=== PATIENT | male | born 1960 | race Caucasian/White ===

== ENCOUNTER 2019-12-16 15:03 | Inpatient (IN) | payer OTHER ==
[2019-12-16 15:54] LABS: Basophils % (A) 0 %; Eosinophils # (A) 0.1 k/uL (0-0.7); Eosinophils % (A) 1 %; HCT 49.1 % (39.0-53.0); HGB 16.6 gm/dL (13.0-17.5); Lymphocytes # (A) 1.2 k/uL (1.0-4.8); Lymphocytes % (A) 15 %; MCHC 33.9 g/dL (31.0-37.0); MCV 97.2 fL (80.0-100.0); Mean Platelet Volume 7.3; Monocytes # (A) 0.4 k/uL (0-1.0); Monocytes % (A) 5 %; Neutrophils # (A) 6.3 k/uL (1.3-7.7); Neutrophils % (A) 78 %; Platelet Count 160 k/uL (150-450); RBC 5.05 m/uL (4.30-5.90); RDW 12.6 % (11.5-15.5); WBC 8.1 k/uL (3.8-10.6)
[2019-12-16 16:02] LABS: ALT 8 U/L (4-49); AST 25 U/L (17-59); African American GFR (CKD) >90 (>60 ml/min/1.73 sqM); Albumin 4.4 g/dL (3.5-5.0); Alcohol <10 mg/dL; Alkaline Phosphatase 83 U/L (38-126); Anion Gap 8 mmol/L; Blood Urea Nitrogen 7 mg/dL (9-20); Calcium 9.2 mg/dL (8.4-10.2); Carbon Dioxide 24 mmol/L (22-30); Chloride 103 mmol/L (98-107); Glucose 105 mg/dL (74-99); Non-African American GFR(CKD) >90 (>60 ml/min/1.73 sqM); Potassium 4.2 mmol/L (3.5-5.1); Sodium 135 mmol/L (137-145); Total Bilirubin 0.9 mg/dL (0.2-1.3); Total Protein 6.8 g/dL (6.3-8.2)
[2019-12-16 16:05] LABS: Partial Thromboplastin Time 23.9 sec (22.0-30.0); Prothrombin Time 10.6 sec (9.0-12.0)
--- NOTE | 2019-12-16 16:20 | ED ---
Dizziness HPI - General Chief Complaint: Dizziness Stated Complaint: lightheaded Time Seen by Provider: 12/16/19 15:05 Source: patient Limitations: no limitations - History of Present Illness Initial Comments: Patient is a 59-year-old male with past medical history of stroke who presents emergency Department with reported ataxia. Patient states he had a stroke 10 years ago. Had weakness which was chronic in his right side however again majority of this strength. He spent 4 years in a fpc and was just released last year. Reports that he's been doing well up until today. He woke up at 11:00 and noted that he felt a little bit weak on his left side and had difficulty keeping his balance. Normally ablates with a 4 post walker however states this was difficult for him. He denies any headaches or visual changes. No facial droop. Denies feeling confused. Reports that his symptoms have completely resolved upon arriving to the hospital. He has not taken any medications in a year. Patient reports to drinking 6 beers daily. Denies any fevers or chills. No chest pain or cough. No history of cardiac disease. No changes in his bowel or bladder habits. No other alleviating, Perceptin or mottling factors - Related Data Allergies Allergy/AdvReac Type Severity Reaction Status Date / Time No Known Allergies Allergy Verified 12/16/19 15:11 Review of Systems ROS Statement: Those systems with pertinent positive or pertinent negative responses have been documented in the HPI. ROS Other: All systems not noted in ROS Statement are negative. Past Medical History Past Medical History: CVA/TIA, Hypertension History of Any Multi-Drug Resistant Organisms: None Reported Past Surgical History: Tonsillectomy Past Psychological History: No Psychological Hx Reported Smoking Status: Current every day smoker Past Alcohol Use History: Daily Past Drug Use History: None Reported - Past Family History Mother Family Medical History: Cancer Father Family Medical History: Cancer General Exam Limitations: no limitations Course Vital Signs 12/16/19 12/16/19 15:05 15:45 Temperature 99.1 F Pulse Rate 55 L Pulse Rate [ 104 H Sitting Heating Engineer] Pulse Rate [ 107 H Standing Heating Engineer ] Pulse Rate [ 101 H Supine Heating Engineer] Respiratory 17 Rate Blood Pressure 168/100 Blood Pressure 170/92 [Right Arm Sitting] Blood Pressure 171/86 [Right Arm Standing] Blood Pressure 152/68 [Right Arm Supine] O2 Sat by Pulse 99 Oximetry EKG Findings - EKG Comments: EKG Findings:: EKG demonstrates sinus tachycardia with a ventricular rate of 106. Current 166. QRS 74. QTC of 441. Patient does have frequent PVCs in a bigeminy rhythm. No acute ST segment elevations or depressions Medical Decision Making - Medical Decision Making Upon arrival patient is placed into room 1. A thorough history and physical exam was performed. NIH stroke scale is performed. Patient does have some difficulties with finger to nose on the left side. Last known well was before the patient went to bed at 11 PM last night. Patient reports to feeling asymptomatic. Strength is equal. Peripheral IV was established. 12-lead EKG was performed which answers bigeminy rhythm. Lab results were conducted and the patient went for a CT of his brain as well as CT angiography. Laboratory studies are unremarkable. CT of the patient's brain demonstrates multiple old lacunar infarcts. CT angiography demonstrates mild atherosclerotic narrowing at the left greater than the right proximal ICAs. Less than 50% narrowing on the left than on the right there is less than 25%. No large vessel intracranial arterial occlusion. Chest x-ray demonstrates signs of COPD. I did discuss results with the patient. He is given a full dose aspirin. He did recommend hospitalization for evaluation by neurology and continued neuro checks per patient did agree to this. Discussed case with Dr. Lopez who accepted admission. She did see the patient in the emergency department. Patient was taken to the floor in stable condition - Lab Data Result diagrams: 12/16/19 15:39 12/16/19 15:39 Lab Results 12/16/19 12/16/19 12/16/19 Range/Units 15:39 15:39 15:39 WBC 8.1 (3.8-10.6) k/uL RBC 5.05 (4.30-5.90) m/uL Hgb 16.6 (13.0-17.5) gm/dL Hct 49.1 (39.0-53.0) % MCV 97.2 (80.0-100.0) fL MCH 33.0 (25.0-35.0) pg MCHC 33.9 (31.0-37.0) g/dL RDW 12.6 (11.5-15.5) % Plt Count 160 (150-450) k/uL Neutrophils % 78 % Lymphocytes % 15 % Monocytes % 5 % Eosinophils % 1 % Basophils % 0 % Neutrophils # 6.3 (1.3-7.7) k/uL Lymphocytes # 1.2 (1.0-4.8) k/uL Monocytes # 0.4 (0-1.0) k/uL Eosinophils # 0.1 (0-0.7) k/uL Basophils # 0.0 (0-0.2) k/uL PT 10.6 (9.0-12.0) sec INR 1.0 (<1.2) APTT 23.9 (22.0-30.0) sec Sodium 135 L (137-145) mmol/L Potassium 4.2 (3.5-5.1) mmol/L Chloride 103 (98-107) mmol/L Carbon Dioxide 24 (22-30) mmol/L Anion Gap 8 mmol/L BUN 7 L (9-20) mg/dL Creatinine 0.83 (0.66-1.25) mg/dL Est GFR (CKD-EPI)AfAm >90 (>60 ml/min/1.73 sqM) Est GFR (CKD-EPI)NonAf >90 (>60 ml/min/1.73 sqM) Glucose 105 H (74-99) mg/dL Plasma Lactic Acid Pedrito (0.7-2.0) mmol/L Calcium 9.2 (8.4-10.2) mg/dL Total Bilirubin 0.9 (0.2-1.3) mg/dL AST 25 (17-59) U/L ALT 8 (4-49) U/L Alkaline Phosphatase 83 (38-126) U/L Troponin I (0.000-0.034) ng/mL Total Protein 6.8 (6.3-8.2) g/dL Albumin 4.4 (3.5-5.0) g/dL Serum Alcohol <10 mg/dL 12/16/19 12/16/19 Range/Units 15:39 15:39 WBC (3.8-10.6) k/uL RBC (4.30-5.90) m/uL Hgb (13.0-17.5) gm/dL Hct (39.0-53.0) % MCV (80.0-100.0) fL MCH (25.0-35.0) pg MCHC (31.0-37.0) g/dL RDW (11.5-15.5) % Plt Count (150-450) k/uL Neutrophils % % Lymphocytes % % Monocytes % % Eosinophils % % Basophils % % Neutrophils # (1.3-7.7) k/uL Lymphocytes # (1.0-4.8) k/uL Monocytes # (0-1.0) k/uL Eosinophils # (0-0.7) k/uL Basophils # (0-0.2) k/uL PT (9.0-12.0) sec INR (<1.2) APTT (22.0-30.0) sec Sodium (137-145) mmol/L Potassium (3.5-5.1) mmol/L Chloride (98-107) mmol/L Carbon Dioxide (22-30) mmol/L Anion Gap mmol/L BUN (9-20) mg/dL Creatinine (0.66-1.25) mg/dL Est GFR (CKD-EPI)AfAm (>60 ml/min/1.73 sqM) Est GFR (CKD-EPI)NonAf (>60 ml/min/1.73 sqM) Glucose (74-99) mg/dL Plasma Lactic Acid Pedrito 1.1 (0.7-2.0) mmol/L Calcium (8.4-10.2) mg/dL Total Bilirubin (0.2-1.3) mg/dL AST (17-59) U/L ALT (4-49) U/L Alkaline Phosphatase (38-126) U/L Troponin I <0.012 (0.000-0.034) ng/mL Total Protein (6.3-8.2) g/dL Albumin (3.5-5.0) g/dL Serum Alcohol mg/dL Disposition Clinical Impression: Acute ataxia, History of CVA (cerebrovascular accident) Disposition: ADMITTED IP TO THIS HOSP Condition: Stable Is patient prescribed a controlled substance at d/c from ED?: No Decision to Admit Reason: Admit from EC Decision Date: 12/16/19 Decision Time: 16:43
--- NOTE | 2019-12-16 16:33 | CT ---
EXAMINATION TYPE: CT brain wo con DATE OF EXAM: 12/16/2019 COMPARISON: None HISTORY: 59-year-old male Dizziness, hx of stroke TECHNIQUE: Examination was done in axial plane without intravenous contrast. Coronal and sagittal r econstructions performed. CT DLP: 1102.8 mGycm Automated exposure control for dose reduction was used. FINDINGS: There is no evidence of acute intracranial hemorrhage, acute ischemic changes, mass, mass-effect, or extra-axial fluid collection. There is no effacement of cerebral sulci or basal subarachnoid cister ns. There is no hydrocephalus. There is no midline shift. Radford-white matter distinction is preserv ed. Leftward nasal septal deviation. Trace mucosal thickening ethmoid air cells. Mastoid air cells are pn eumatized. Old lacunar infarcts within the deep left white matter and left caudate head. IMPRESSION: A couple old left-sided lacunar infarcts. No acute intracranial abnormality seen.
--- NOTE | 2019-12-16 16:45 | XR ---
EXAMINATION TYPE: XR chest 2V DATE OF EXAM: 12/16/2019 COMPARISON: None HISTORY: 59-year-old male with dizziness TECHNIQUE: AP and lateral views FINDINGS: Heart normal size. Aorta and pulmonary vasculature are within normal limits. Suspect old fracture def ormity posterolateral upper right ribs. Mild diffuse interstitial prominence and mild hyperinflation. No consolidation or pleural effusion. DISH within the thoracic spine. IMPRESSION: Correlate for possible underlying COPD. No acute cardiopulmonary process.
--- NOTE | 2019-12-16 17:06 | CT ---
EXAMINATION TYPE: CT angio head neck DATE OF EXAM: 12/16/2019 COMPARISON: CT earlier today HISTORY: 59-year-old male with stroke suspected, acute neurologic deficit, Dizziness TECHNIQUE: Contiguous axial scanning of the sided neck performed with IV Contrast, patient injected w ith 65 mL of Isovue 370. Coronal/sagittal MIP reconstructions performed. CT DLP: 421 mGycm Automated exposure control for dose reduction was used. FINDINGS: NECK: Mild emphysematous change in the visualized upper lungs. Conventional vessel branching anatomy. The vertebral artery origins are patent and the vessels are patent throughout the course and codomina nt. The right common carotid artery is patent. Mild to moderate atherosclerotic change at the right bifurcation with a mild, 25% narrowing at the pr oximal right ICA. Measured internal carotid artery is patent. The left common carotid artery is patent. Moderate atherosclerotic changes at the left bifurcation. With mild, less than 50% narrowing at the l eft carotid bulb. Remainder of the left ICA is patent. HEAD: The vertebral arteries are patent. Mild atherosclerotic calcification within the right vertebral maritza ry. Early take off of the right PICA at the V3/V4 junction. The basilar artery is patent. Remainder of the posterior circulation is patent. Bilateral scattered calcifications within the cavernous segment right ICA. No significant narrowing. Anterior circulation is patent. No aneurysmal change is seen. IMPRESSION: 1. NECK: MILD ATHEROSCLEROTIC NARROWING AT THE LEFT GREATER THAN RIGHT PROXIMAL ICA's. ON THE LEFT, T HERE IS LESS THAN 50% NARROWING AND ON THE RIGHT, THERE IS LESS THAN 25% NARROWING. 2. HEAD: NO LARGE VESSEL INTRACRANIAL ARTERIAL OCCLUSION, SIGNIFICANT STENOSIS, OR ANEURYSMAL CHANGE IS SEEN.
[2019-12-16] MEDS ORDERED: ASPIRIN 325 MG TAB PO STA (17:18)
[2019-12-16] MEDS ORDERED: NALOXONE 0.4 MG/ML 1 ML VIAL IV PRN (18:16)
[2019-12-16] MEDS ORDERED: ACETAMINOPHEN TAB 325 MG TAB PO PRN (18:16)
[2019-12-16] MEDS ORDERED: LORazepam 2 MG/ML INJ IV PRN ×3 (18:19)
[2019-12-16] MEDS ORDERED: THIAMINE 100 MG/ML 2 ML VIAL IM STA (18:19)
--- NOTE | 2019-12-16 18:22 | P.HPIM ---
History of Present Illness H&P Date: 12/16/19 Chief Complaint: left sided weakness Patient is a 59-year-old male with a history of prior cerebrovascular accident with resultant right-sided hemiparesis requiring a 4 problem walker, chronic alcohol use, ad hypertension who presented with left sided weakness upon waking. He underwent an extensive evaluation in the ER. Initial vital signs show him to be hypertensive with a blood pressure 160/100. Orthostatic vitals were negative. Initial laboratory analysis was essentially unremarkable. Chest x- ray showed no acute process but probable underlying COPD. CT head showed old left-sided lacunar infarcts with no acute intracranial abnormality. EKG demonstrated bigeminy. There was concern for possible TIA as he had cerebral signs depsoite improvement in left sided weakness. Arrangements were made for admission. Patient seen and examined at bedside. Woke up today and felt unstable, left side wasn't working as well as it typically does and he felt a little light headed. Slept longer than normal last night. [place] very off balance when walking, was having to use the nunez and furniture for balance. Waited an hour still off balance and then again waited an hour and still of balance. Always has double vision when watching TV, but then says he sees fine , uses g lasses, No LAU No presyncope Chronic right sided hemiparesis, numbess on the right finger tip and foot X 10 years Was in residential for 4 years states he was there because he didn't have anywhere to go, states that it was due to alcohol. Drinks 6 beers nightly for the last 6 months. Review of Systems Pertinent positives and negatives as discussed in HPI, a complete review of systems was performed and all other systems are negative. Past Medical History Past Medical History: CVA/TIA, Hyperlipidemia, Hypertension History of Any Multi-Drug Resistant Organisms: None Reported Past Surgical History: Tonsillectomy Additional Past Surgical History / Comment(s): pneumthorax with chest tube Past Psychological History: No Psychological Hx Reported Smoking Status: Current every day smoker Past Alcohol Use History: Daily Past Drug Use History: None Reported Additional History: 1/4 PPD, six beers daily - Past Family History Mother Family Medical History: Cancer Father Family Medical History: Cancer Medications and Allergies Home Medications Medication Instructions Recorded Confirmed Type No Known Home Medications 09/07/20 09/07/20 History Allergies Allergy/AdvReac Type Severity Reaction Status Date / Time No Known Allergies Allergy Verified 12/16/19 18:06 Physical Exam Osteopathic Statement: *. No significant issues noted on an osteopathic structural exam other than those noted in the History and Physical/Consult. Vitals: Vital Signs Temp Pulse Pulse Pulse Pulse Resp BP 12/16/19 15:45 104 H 107 H 101 H 12/16/19 15:05 99.1 F 55 L 17 168/100 BP BP BP Pulse Ox 12/16/19 15:45 170/92 171/86 152/68 12/16/19 15:05 99 Intake and Output 12/16/19 12/16/19 12/16/19 06:59 14:59 22:59 Other: Weight 61.235 kg General: non toxic, no distress, appears at stated age Derm: warm, dry Head: atraumatic, normocephalic, symmetric Eyes: EOMI, no lid lag, anicteric sclera, pupils equal round reactive to light ENT: Nose and ears atraumatic, no thrush, no pharyngeal erythema Neck: No thyromegaly, no cervical lymphadenopathy, trachea midline, supple Mouth: no lip lesion, mucus membranes moist Cardiovascular: S1S2 reg, no murmur, positive posterior tibial pulse bilateral, no edema, capillary refill less than 2 seconds Lungs: clear to ascultation bilateral, no ronchi, no rales, no wheeze, no accessory muscle use Abdominal: soft, nontender to palpation, no guarding, no appreciable organomegaly, normal bowel sounds Ext: no gross muscle atrophy, muscle strength 5 out of 5 in bilateral upper extremities, 5 out of 5 in left lower extremity, 3-4 out of 5 in right lower extremity, no contractures Neuro: CN II-XI grossly intact, light touch intact all 4 extremities, finger to nose within normal limits, [id number] normal, no tremor Psych: Alert, oriented, appropriate affect, tangential thinking Results CBC & Chem 7: 12/16/19 15:39 12/16/19 15:39 Labs: Abnormal Lab Results - Last 24 Hours (Table) 12/16/19 Range/Units 15:39 Sodium 135 L (137-145) mmol/L BUN 7 L (9-20) mg/dL Glucose 105 H (74-99) mg/dL Thrombosis Risk Factor Assmnt - DVT/VTE Prophylaxis DVT/VTE Prophylaxis: Pharmacologic Prophylaxis ordered Assessment and Plan Assessment: Disequilibrium -Concern for possible posterior circulation stroke/TIA secondary to history of large stroke at age 49 -Neuro checks -Aspirin, statin -Consult nephrology -Echo -PT/OT/speech -Telemetry -All symptoms appeared to have resolved and this could be reflective of a TIA Hypertension, accelerated on arrival -Follow blood pressures -allow permissive hypertension with concerns for stroke -Possible need for blood pressure medication on discharge History of dyslipidemia -Not currently on medications -Check lipid profile -Start statin Alcohol abuse with impending withdrawal -[facility] protocol -Thiamine -Folic acid -Social work consultation Tobacco abuse -Cessation -Nicotine replacement The patient is placed in observation with an anticipated less than 2 midnight stay for evaluation of disequilibrium. Surrogate decision-maker: patient states that he has no one CODE STATUS: DNR DVT prophylaxis: Lovenox Discussed with: patient, nursing, ed physician Anticipated discharge date: 1-[address]: home A total of 65 minutes was spent on the care of this complex patient more than 50% of the time was spent in counseling and care coordination.
[2019-12-16 18:27] LABS: Appearance,Urine Clear (Clear); Bilirubin,Urine Negative (Negative); Blood,Urine Negative (Negative); Color,Urine Light Yellow; Glucose,Urine (UA) Negative (Negative); Ketones,Urine Negative (Negative); Leukocyte Esterase,Urine Negative (Negative); Nitrite,Urine Negative (Negative); Protein,Urine Negative (Negative); Specific Gravity,Urine 1.012 (1.001-1.035); Urobilinogen,Urine <2.0 mg/dL (<2.0)
[2019-12-16] MEDS: THIAMINE 100 MG TAB PO SCH (21:08)
[2019-12-16] MEDS: ATORVASTATIN 40 MG TAB PO SCH (21:08)
[2019-12-16] MEDS: NICOTINE 14MG/24HR PATCH TRANSDERM SCH (21:08)
[2019-12-17] MEDS: THIAMINE 100 MG TAB PO SCH ×2 (06:54→17:55)
[2019-12-17 07:43] LABS: Cholesterol 220 mg/dL (<200); Triglycerides 133 mg/dL (<150)
[2019-12-17 07:50] LABS: HDL Cholesterol 108 mg/dL (40-60); LDL Cholesterol,Calculated 85 mg/dL (0-99)
[2019-12-17] MEDS: MULTIVITAMINS, THERA 1 EACH TAB PO SCH (08:54)
[2019-12-17] MEDS: FOLIC ACID 1 MG TAB PO SCH (08:54)
[2019-12-17] MEDS: ENOXAPARIN 40 MG/0.4 ML SYRINGE SQ SCH (08:54)
[2019-12-17] MEDS: NICOTINE 14MG/24HR PATCH TRANSDERM SCH ×2 (08:54→08:58)
--- NOTE | 2019-12-17 11:01 | ECHOF ---
Referral Reason:stroke MEASUREMENTS -------- HEIGHT: 152.4 cm WEIGHT: 61.7 kg BP: IVSd: 1.1 cm (0.6 - 1.1) LVIDd: 3.5 cm (3.9 - 5.3) LVPWd: 1.2 cm (0.6 - 1.1) IVSs: 1.4 cm LVIDs: 3.1 cm LVPWs: 1.4 cm LA Diam: 3.5 cm (2.7 - 3.8) LAESV Index (A-L): 18.49 ml/m Ao Diam: 3.2 cm (2.0 - 3.7) AV Cusp: 1.7 cm (1.5 - 2.6) MV EXCURSION: 19.436 mm (> 18.000) MV EF SLOPE: 113 mm/s (70 - 150) EPSS: 1.0 cm MV E Kyle: 0.37 m/s MV DecT: 197 ms MV A Kyle: 0.60 m/s MV E/A Ratio: 0.61 RAP: 5.00 mmHg RVSP: 8.95 mmHg FINDINGS -------- Sinus rhythm. This was a technically good study. LV size, wall thickness and systolic function are normal, with an EF greater than 55%. The left robert tricular size is normal. The diastolic filling pattern is normal for the age of the patient 4.69. The right ventricle is normal in size. The left atrial size is normal. Normal LA size by volume 22+/-6 ml/m2. The right atrial size is normal. The aortic valve is trileaflet, and appears structurally normal. No aortic stenosis or regurgitation. Mild mitral regurgitation is present. Mild tricuspid regurgitation present. Right ventricular systolic pressure is normal at < 35 mmHg. There is no pulmonic regurgitation present. The aortic root size is normal. There is no pericardial effusion. CONCLUSIONS -------- 1. LV size, wall thickness and systolic function are normal, with an EF greater than 55%. 2. The left ventricular size is normal. 3. The diastolic filling pattern is normal for the age of the patient 4.69 4. The right ventricle is normal in size. 5. The left atrial size is normal. 6. Mild mitral regurgitation is present. 7. Mild tricuspid regurgitation present. 8. There is no pericardial effusion. SULFONATOR OPERATOR: Martha Infante RDCS
[2019-12-17] MEDS ORDERED: ASPIRIN 325 MG TAB PO SCH (12:00)
--- NOTE | 2019-12-17 13:31 | P.CNNES ---
History of Present Illness Consult date: 12/17/19 Requesting physician: Gabriela Álvarez Reason for Consult: ataxia History of Present Illness: This is a 59-year-old right-handed gentleman with medical history of stroke with right sided weakness about 10 years ago with residual right lower extremity weakness, alcohol use, tobacco use and hypertension who presented to the emergency department on 12/16/2019 for ataxia on left side. Patient woke up around 11:00 in the morning on 12/16/2019 and he felt weak over the left lower extremity and felt unsteady walking on left lower extremity. He had difficulty keeping his balance. Normally and he ambulates with a walker however he states, is walking seem different. Last normal was before he went to bed around 11 PM. He denied any numbness any visual disturbance any difficulty getting his words out as slurring her speech He denies of any dizziness, any weakness or ataxia over the left upper extremity. She denied of any headache. So the patient decided that the he's currently come to the emergency department since the left side is his strong side. For secondary stroke prophylaxis patient is not on any antiplatelet or Lipitor and he has not been on it for 6 months to a year since he was told by nursing facility that he does not need it. He reports drinking 6 beers daily and last drink was on Monday. Of note the patient stated that he had a stroke about 10 years ago which right upper and lower extremity was weak he went to [place] on [address] to him and he had some stroke workup and then he was discharged the in the hospital after a day or 2 and he had physical therapy at home. He had the residual right lower extremity weakness from the stroke otherwise the right upper extremity weakness resolved. He was using a wheel walker. 2016 the patient stated that he was homeless and he had no family so he went to a rehab facility but he said that he was in getting great rehab. Over at that facility and it was decided that he doesn't need the aspirin or Lipitor for secondary prophylaxis. As well as that he didn't need thiamine. He was discharged about the middle of 2018. She has also states that he smokes about 4-5 cigarettes a day and he's been smoking for years. Patient's workup in the hospital consisted of: Initial vitals consisted of blood pressure of 160/100, with a heart rate of 55, respiratory rate of 17 a temperature of 99.1 Fahrenheit orally and the pulse ox of [address] of the head which was reported as a couple old left-sided lacunar infarct. No acute intracranial abnormality seen. I personally reviewed the CT of the head and I felt the patient had some ex vacuo over the left occipital ventricle. I did appreciate that to lacunar infarct over the left hemisphere and a cemented to be subcortical in origin likely in the basal ganglia. There is a questionable minimal old lacunar over the right internal capsule but again it's questionable. CT angiography of the head and neck was done and the head was reported as no large vessel intracranial arterial occlusion, significant stenosis or aneurysm changes seen. In the neck was reported as mild atherosclerotic narrowing at the left greater than the right proximal ICA. On the left there is a less than 50% narrowing and on the right there is a less than 25% narrowing. EKG was reported as sinus tachycardia with frequent premature ventricular complex in that pattern of bigeminy. Possible left atrial enlargement. Septal infarct, age undetermined. Ventricular rate of 106. 2-D echo was reported as well that left ventricular size is normal. Ejection fraction of 55%. Left atrium size is normal. In the emergency department, the ED team noted on physical exam the patient had some difficulties with finger to nose on the left. Otherwise no weakness numbness. Patient did not get IV TPA since the patient was outside the window. Alcohol level <10. Review of Systems Review of system: The 12 point system was reviewed and apparent positive and negative per HPI. Past Medical History Past Medical History: CVA/TIA, Hyperlipidemia, Hypertension Additional Past Medical History / Comment(s): Right sided weakness initially paralyzed but able to gain strength back, uses walker History of Any Multi-Drug Resistant Organisms: None Reported Past Surgical History: Tonsillectomy Additional Past Surgical History / Comment(s): pneumthorax with chest tube Past Psychological History: No Psychological Hx Reported Smoking Status: Current every day smoker Past Alcohol Use History: Daily Past Drug Use History: None Reported - Past Family History Mother Family Medical History: Cancer Father Family Medical History: Cancer Medications and Allergies Home Medications Medication Instructions Recorded Confirmed Type No Known Home Medications 12/16/19 12/16/19 History Allergies Allergy/AdvReac Type Severity Reaction Status Date / Time No Known Allergies Allergy Verified 12/16/19 18:06 Physical Examination - Vital Signs Vital Signs: Vital Signs Temp Pulse Pulse Pulse Pulse Resp BP 12/17/19 11:56 98.6 F 77 20 12/17/19 08:00 98.5 F 73 20 12/17/19 04:00 98.0 F 48 L 16 12/17/19 00:00 98.1 F 75 17 12/16/19 20:00 98.2 F 72 16 12/16/19 18:44 98.3 F 76 16 12/16/19 18:02 99.3 F 93 17 139/96 12/16/19 15:45 104 H 107 H 101 H 12/16/19 15:05 99.1 F 55 L 17 168/100 BP BP BP Pulse Ox 12/17/19 11:56 138/80 98 12/17/19 08:00 132/85 96 12/17/19 04:00 143/69 99 12/17/19 00:00 149/78 97 12/16/19 20:00 153/65 97 12/16/19 18:44 129/90 100 12/16/19 18:02 98 12/16/19 15:45 170/92 171/86 152/68 12/16/19 15:05 99 Intake and Output 12/16/19 12/17/19 12/17/19 22:59 06:59 14:59 Intake Total 200 90 Output Total 175 Balance 200 -85 Intake: Oral 200 90 Output: Urine 175 Other: Voiding Method Urinal Urinal Weight 61.235 kg 62 kg GENERAL: The patient is lying in bed and is not in acute distress. CHEST: The heart rate is regular rate rhythm. No murmurs to auscultation. No carotid bruit bilaterally. LUNG: Clear to auscultation bilaterally no wheezing noted throughout. Not labored breathing. ABDOMEN/GI: Bowel sounds present in all 4 quadrants. No tenderness to palpation throughout. NEUROLOGICAL: Higher mental function: The patient is awake, alert, oriented to self, place and time. Patient is following commands. No aphasia and no neglect. Cranial nerves: The pupils are round, equal and reactive to light and accommodation. Visual saeed are full to confrontation throughout. Extraocular movement is intact no nystagmus is noted. Facial sensation is normal to touch throughout. The facial strength is normal throughout. Hearing is normal bilaterally to hand rub. Tongue is midline and moved [id number] without any difficulty. No dysarthria is noted. Shoulder shrug is normal bilaterally. Motor: Gait was assessed and patient was using a wheel chair and felt patient has circumduction of upon walking. Also I felt when walking his right foot was been slapped on the feet with every step. The strength: right distal lower extremity was 4+ and right hand ferry terminal agent was 5-. Otherwise 5/5 everywhere else is 5 over 5 throughout. There is decrease bulk in the right half area. Cerebellum: Ataxia noted over the left finger to nose and heel to aiken. Sensation: Sensation is normal to touch throughout. Reflexes (right/left): 3+ throughout right side and 2+ over the left side. Plantars is upgoing on the right and downgoing on the left.. Results Alcohol level is less than 10 Lipid profile: Triglyceride 133, cholesterol 220, LDL 85 and HDL 108. AST is 25 and ALTs of 8. Coagulation study: PT of 10.6, INR 1.0 and PTT of 23.9 - Laboratory Findings CBC and BMP: 12/16/19 15:39 12/16/19 15:39 Abnormal Lab Findings: Abnormal Labs 12/16/19 12/17/19 15:39 06:31 Sodium 135 L BUN 7 L Glucose 105 H Cholesterol 220 H HDL Cholesterol 108 H Assessment and Plan Assessment: Ataxia on the left side likely due stroke (he feels back to baseline but examination he continues to remain ataxia) History of multiple lacunar stroke over the left hemisphere with residual right lower extremity weakness (they seem subcortical and in the basal ganglia distribution) Hyponatremia possibly due to alcohol use. Hypertension Alcohol use Tobacco use Plan: CT of the head which was reported as a couple old left-sided lacunar infarct. No acute intracranial abnormality seen. I personally reviewed the CT of the head and I felt the patient had some ex vacuo over the left occipital ventricle. I did appreciate that to lacunar infarct over the left hemisphere and a cemented to be subcortical in origin likely in the basal ganglia. There is a questionable minimal old lacunar over the right internal capsule but again it's questionable. CT angiography of the head and neck was done and the head was reported as no large vessel intracranial arterial occlusion, significant stenosis or aneurysm changes seen. In the neck was reported as mild atherosclerotic narrowing at the left greater than the right proximal ICA. On the left there is a less than 50% narrowing and on the right there is a less than 25% narrowing. I ordered MRI of the brain to rule out any active stroke seen on imaging since the patient still has ataxia on the left side. 2-D echo was reported as well that left ventricular size is normal. Ejection fraction of 55%. Left atrium size is normal. Lipid profile: Triglyceride 133, cholesterol 220, LDL 85 and HDL 108. With LDL goal <70. Patient has not been on any antiplatelets or Lipitor for at least 1 year (he was told by rehab facility that he does not need it. PLACED the patient on double antiplatelets aspirin 81 and Plavix 75 and then discontinue Plavix after 21 days and to be permanently on aspirin 81 mg. Continue Lipitor 40 mg. PT OT and MANAGER RETAIL are consulted. I ordered TSH and hemoglobin A1c. Continue cardiac monitoring. I also ordered vitamin B12 especially with a history of significant alcohol use and the new episode of ataxia Patient is currently on thiamine 100 mg twice a day as well as folic acid 1mg daily. Patient was counseled on tobacco cessation as well as alcohol use. Because of the patient's significant history of alcohol use he is on CIWA protocol. Patient wants to be discharged home by latest tomorrow. Upon discharge the patient needs to follow up with a neurologist regarding the history of strokes as well as the this episode of ataxia which seems like an acute stroke as well. Thank you for the consult. Update: MRI Brain was done and showed acute right thalamic ischemic stroke. Also shows some periventricular white matter change in the posterior left hernandez radiata. Chronic white matter ischemic change to be considered. I personally reviewed the images and felt it was subacute (since hyperintensity on DWI, ADC and FLAIR). I recommend patient to be observed till tomorrow then will discharge him Jose Franklin M.D. Neuro-hospitalist Time with Patient: Greater than 30
--- NOTE | 2019-12-17 14:23 | MR ---
EXAMINATION TYPE: MR brain wo con DATE OF EXAM: 12/17/2019 COMPARISON: CT brain 12/16/2019 HISTORY: stroke: ataxia CONTRAST: Performed utilizing 0 mL intravenous Gadavist gadolinium contrast. TECHNIQUE: Multiplanar, multiecho imaging on a 3.0 Amita magnet is performed through the brain. Stud y is performed within 24 hours of arrival to the hospital. The craniovertebral junction is normal. The pituitary is normal. Diffusion-weighted imaging is performed. There is a punctate hyperintensity within the right thalamu s compatible with a tiny lacunar infarct. Some additional hyperintensities within the slightly more s uperior right thalamus in the periventricular white matter. Findings are compatible with acute ischem ic change. There is some periventricular white matter change in the posterior left hernandez radiata. Chronic white matter ischemic change be considered. Ventricles and sulci are appropriate for the patient age. IMPRESSIONS: 1. Acute lacunar infarct right thalamus and periventricular white matter.
--- NOTE | 2019-12-17 16:36 | P.PN ---
Subjective Progress Note Date: 12/17/19 Principal diagnosis: CVA Patient was seen and examined. No acute events overnight. Patient reports complete resolution sided weakness. States it is back to baseline. Would like to hold. He denies any chest pain, shortness of breath, or palpitations. No nausea or vomiting. No fever or chills. Objective - Vital Signs Vital signs: Vital Signs Temp 98.6 F 12/17/19 11:56 Pulse 77 12/17/19 11:56 Resp 20 12/17/19 11:56 BP 138/80 12/17/19 11:56 Pulse Ox 98 12/17/19 11:56 Intake & Output 12/16/19 12/17/19 12/17/19 18:59 06:59 18:59 Intake Total 200 190 Output Total 175 Balance 200 15 Weight 61.235 kg 62 kg Intake: Oral 200 190 Output: Urine 175 Other: Voiding Method Urinal Urinal - Exam General: [non toxic], [no distress], [appears at stated age] Derm: [warm], [dry] Head: [atraumatic], [normocephalic], [symmetric] Eyes: [EOMI], [no lid lag], [anicteric sclera] Mouth: [no lip lesion], [mucus membranes moist] Cardiovascular: [S1S2 reg], [no murmur], [positive posterior tibial pulse bilateral], Lungs: [CTA bilateral], [no rhonchi, no rales] , [no accessory muscle use] Abdominal: [soft], [ nontender to palpation], [no guarding], [no appreciable organomegaly] Ext: [no gross muscle atrophy], [no edema], [no contractures] Neuro: [ CN II-XI grossly intact], [3 out of 5 strength right upper and lower extremity, 5 out of 5 strength throughout otherwise] Psych: [Alert], [oriented], [appropriate affect] - Labs CBC & Chem 7: 12/16/19 15:39 12/16/19 15:39 Labs: Abnormal Lab Results - Last 24 Hours (Table) 12/17/19 Range/Units 06:31 Cholesterol 220 H (<200) mg/dL HDL Cholesterol 108 H (40-60) mg/dL Assessment and Plan Assessment: Lacunar CVA -Neuro checks -Aspirin, statin -Started on Plavix by neurology -MRI brain shows right-sided lacunar infarct -Discussed with Dr. Franklin, recommends observation overnight -Echo shows EF 55% -PT/OT/speech -Telemetry Hypertension, accelerated on arrival -Follow blood pressures -allow permissive hypertension with concerns for stroke -Possible need for blood pressure medication on discharge History of dyslipidemia -Not currently on medications -Lipid panel shows total cholesterol 220, HDL of 108 -Start statin Alcohol abuse with impending withdrawal -[facility] protocol -Thiamine -Folic acid -Social work consultation Tobacco abuse -Cessation -Nicotine replacement [Patient admitted for CVA. Neurology on board. Symptoms of resolved. Discussed with neurology, continue monitoring overnight. Anticipate DC home tomorrow.]
[2019-12-17] MEDS: CLOPIDOGREL 75 MG TAB PO SCH (17:55)
[2019-12-17 20:07] LABS: Hemoglobin A1C 5.6 % (4.0-6.0)
[2019-12-17] MEDS: ATORVASTATIN 40 MG TAB PO SCH (20:54)
[2019-12-18] MEDS: THIAMINE 100 MG TAB PO SCH (06:47)
[2019-12-18] MEDS ORDERED: ASPIRIN 81 MG PO SCH (09:00)
[2019-12-18] MEDS: ENOXAPARIN 40 MG/0.4 ML SYRINGE SQ SCH (09:35)
[2019-12-18] MEDS: FOLIC ACID 1 MG TAB PO SCH (09:35)
[2019-12-18] MEDS: NICOTINE 14MG/24HR PATCH TRANSDERM SCH (09:35)
[2019-12-18] MEDS: MULTIVITAMINS, THERA 1 EACH TAB PO SCH (09:35)
[2019-12-18] MEDS: CLOPIDOGREL 75 MG TAB PO SCH (09:35)
[2019-12-18 10:39] VITALS: BMI 18.2
[2019-12-18 11:09] VITALS: BP 128/77; PULSE 89; RESP 16; TEMP 98.4
--- NOTE | 2019-12-18 12:47 | P.PN ---
Subjective Progress Note Date: 12/18/19 Patient was seen at the bedside and he said he is doing much better today compared to yesterday. He feels like he is back to baseline. He denies any further weakness, numbness, visual disturbance or difficulty getting his words out Objective - Vital Signs Vital signs: Vital Signs Temp 98.4 F 12/18/19 08:00 Pulse 89 12/18/19 08:00 Resp 16 12/18/19 08:00 BP 128/77 12/18/19 08:00 Pulse Ox 96 12/18/19 08:00 Intake & Output 12/17/19 12/18/19 12/18/19 18:59 06:59 18:59 Intake Total 490 Output Total 175 250 Balance 315 -250 Weight 57.6 kg 57.6 kg Intake: Oral 490 Output: Urine 175 250 Other: Voiding Method Toilet Toilet Toilet Urinal Urinal Urinal # Voids 3 0 - Exam GENERAL: The patient is lying in bed and is not in acute distress. CHEST: The heart rate is regular rate rhythm. No murmurs to auscultation. LUNG: Clear to auscultation bilaterally no wheezing noted throughout. Not labored breathing. ABDOMEN/GI: Bowel sounds present in all 4 quadrants. No tenderness to palpation throughout. NEUROLOGICAL: Higher mental function: The patient is awake, alert, oriented to self, place and time. Patient is following commands. No aphasia and no neglect. Cranial nerves: The pupils are round, equal and reactive to light and accommodation. Visual saeed are full to confrontation throughout. Extraocular movement is intact no nystagmus is noted. Facial sensation is normal to touch throughout. The facial strength is normal throughout. Hearing is normal bilaterally to hand rub. Tongue is midline and moved [id number] without any difficulty. No dysarthria is noted. Shoulder shrug is normal bilaterally. Motor: Gait was assessed and patient was using a wheel chair and felt patient has circumduction of upon walking. Also I felt when walking his right foot was been slapped on the feet with every step. The strength: right distal lower extremity was 4+ and right hand patient financial services specialist was 5-. Otherwise 5/5 everywhere else is 5 over 5 throughout. There is decrease bulk in the right half area. Cerebellum: Mild Ataxia noted over the left finger to nose and heel to aiken. Sensation: Sensation is normal to touch throughout. Reflexes (right/left): 3+ throughout right side and 2+ over the left side. Plantars is upgoing on the right and downgoing on the left.. - Labs CBC & Chem 7: 12/16/19 15:39 12/16/19 15:39 Assessment and Plan Assessment: Subacute right thalamic stroke (likely small vessel disease (from stroke risk factors HTN, tobacco use and non-commpliant with secondary stroke prophylaxis from prior stroke) History of multiple lacunar stroke over the left hemisphere with residual right lower extremity weakness (they seem subcortical and in the basal ganglia distribution) Hyponatremia possibly due to alcohol use. Hypertension Alcohol use Tobacco use Plan: CT of the head which was reported as a couple old left-sided lacunar infarct. No acute intracranial abnormality seen. I personally reviewed the CT of the head and I felt the patient had some ex vacuo over the left occipital ventricle. I did appreciate that to lacunar infarct over the left hemisphere and a cemented to be subcortical in origin likely in the basal ganglia. There is a questionable minimal old lacunar over the right internal capsule but again it's questionable. CT angiography of the head and neck was done and the head was reported as no large vessel intracranial arterial occlusion, significant stenosis or aneurysm changes seen. In the neck was reported as mild atherosclerotic narrowing at the left greater than the right proximal ICA. On the left there is a less than 50% narrowing and on the right there is a less than 25% narrowing. MRI Brain was done and showed acute right thalamic ischemic stroke. Also shows some periventricular white matter change in the posterior left hernandez radiata. Chronic white matter ischemic change to be considered. I personally reviewed the images and felt it was subacute (since hyperintensity on DWI, ADC and FLAIR). 2-D echo was reported as well that left ventricular size is normal. Ejection fraction of 55%. Left atrium size is normal. Lipid profile: Triglyceride 133, cholesterol 220, LDL 85 and HDL 108. With LDL goal <70. Patient has not been on any antiplatelets or Lipitor for at least 1 year (he was told by rehab facility that he does not need it. PLACED the patient on dual antiplatelets, aspirin 81 and Plavix 75 and then discontinue Plavix after 21 days and to be permanently on aspirin 81 mg. Continue Lipitor 40 mg. PT OT and HEAD OF BUSINESS DEVELOPMENT are consulted. TSH: 3.60. Hemoglobin A1c: 5.6 vitamin B12: 497 (has significant history of alcohol use). Patient is currently on thiamine 100 mg twice a day as well as folic acid 1mg daily. Patient was counseled on tobacco cessation as well as alcohol use. Upon discharge the patient needs to follow up with a neurologist regarding the history of strokes as well as the this episode of ataxia which seems like an acute stroke as well. No further neurological work-up is needed. Jose Franklin M.D. Neuro-hospitalist Time with Patient: Greater than 30
--- NOTE | 2019-12-18 17:27 | P.DS ---
Providers Date of admission: 12/16/19 17:15 Expected date of discharge: 12/18/19 Attending physician: Amelia Triplett DO Consults: 12/16/19 17:17 Consult Physician Urgent Consulting Provider: Jose Franklin Consult Reason/Comments: acute ataxia, suspected tia, hx cva Do you want consulting provider notified?: Yes Primary care physician: Stated None Hospital Course: Patient is a 59-year-old male with a history of prior cerebrovascular accident with resultant right-sided hemiparesis requiring a 4 problem walker, chronic alcohol use, ad hypertension who presented with left sided weakness upon waking. He underwent an extensive evaluation in the ER. Initial vital signs show him to be hypertensive with a blood pressure 160/100. Orthostatic vitals were negative. Initial laboratory analysis was essentially unremarkable. Chest x- ray showed no acute process but probable underlying COPD. CT head showed old left-sided lacunar infarcts with no acute intracranial abnormality. EKG demonstrated bigeminy. There was concern for possible TIA as he had cerebral signs despite improvement in left sided weakness. Arrangements were made for admission. Patient was restarted on aspirin and statin. Neurology was consulted for further recommendations. Neurology recommended MRI brain. MRI brain showed right-sided lacunar infarct. He was subsequently started on Plavix by neurology. Echocardiogram was obtained which showed EF of 55%. PT and OT cleared the patient from their services. Patient was seen and examined. No acute events overnight. Patient reports complete resolution of his left-sided weakness, numbness and tingling. Able to ambulate without much difficulties. Patient states that he is back to baseline. He denies any chest pain, shortness breath or palpitations. No nausea or vomiting. No fever or chills. General: [non toxic], [no distress], [appears at stated age] Derm: [warm], [dry] Head: [atraumatic], [normocephalic], [symmetric] Eyes: [EOMI], [no lid lag], [anicteric sclera] Mouth: [no lip lesion], [mucus membranes moist] Cardiovascular: [S1S2 reg], [no murmur], [positive posterior tibial pulse bilateral], Lungs: [CTA bilateral], [no rhonchi, no rales] , [no accessory muscle use] Abdominal: [soft], [ nontender to palpation], [no guarding], [no appreciable organomegaly] Ext: [no gross muscle atrophy], [no edema], [no contractures] Neuro: [ CN II-XI grossly intact], [3 out of 5 strength right upper and lower extremity, 5 out of 5 strength throughout otherwise] Psych: [Alert], [oriented], [appropriate affect] Lacunar CVA -Neuro checks -Aspirin, statin -Started on Plavix by neurology -MRI brain shows right-sided lacunar infarct -Echo shows EF 55% -PT/OT/speech therapy cleared the patient -Telemetry History of dyslipidemia -Lipid panel shows total cholesterol 220, HDL of 108 -Start statin Alcohol abuse with impending withdrawal -[facility] protocol -Thiamine -Folic acid -Social work consultation Tobacco abuse -Cessation -Nicotine replacement Resolved: Accelerated hypertension [Patient admitted for CVA. Neurology on board. Symptoms have resolved. Discussed with neurology, cleared for discharge. This complex discharge took about 35 minutes to complete.] Pertinent Studies: Brain CT, chest x-ray, CT head and neck, echocardiogram, brain MRI Patient Condition at Discharge: Stable Plan - Discharge Summary Discharge Rx Participant: No New Discharge Prescriptions: New RX: Aspirin 81 mg PO DAILY #30 chew RX: Atorvastatin [Lipitor] 40 mg PO HS #30 tab RX: Clopidogrel [Plavix] 75 mg PO DAILY #30 tab Discharge Medication List RX: Aspirin 81 mg PO DAILY #30 chew 12/18/19 [Rx] RX: Atorvastatin [Lipitor] 40 mg PO HS #30 tab 12/18/19 [Rx] RX: Clopidogrel [Plavix] 75 mg PO DAILY #30 tab 12/18/19 [Rx] Follow up Appointment(s)/Referral(s): Moshe Pozo MD [REFERRING] - 1 Week (office will call with an appointment.) None,Stated [Primary Care Provider] - 1-2 days Activity/Diet/Wound Care/Special Instructions: Diet: Cardiac Follow-up PCP within 2 days of discharge. Follow-up with neurology within 1 week of discharge. Take all medications as advised. Refrain from drinking alcohol. Come back to the ED or call 911 for slurred speech, dizziness, unstable gait, new onset numbness/weakness/tingling of the extremities. Discharge Disposition: HOME SELF-CARE
== END 2019-12-18 13:23 | disposition home or self-care (01) | DRG 65 ==
LOC: EC 15:03 → 3SCARD 17:15
PROVIDERS: ADMIT Internal Medicine; ATTEND Internal Medicine
DX: I63.81 Other cerebral infarction due to occlusion or stenosis of small artery (principal); G81.92 Hemiplegia, unspecified affecting left dominant side; E87.1 Hypo-osmolality and hyponatremia; I10 Essential (primary) hypertension; F17.200 Nicotine dependence, unspecified, uncomplicated; J44.9 Chronic obstructive pulmonary disease, unspecified; E78.5 Hyperlipidemia, unspecified; R40.2363 Coma scale, best motor response, obeys commands, at hospital admission; R40.2143 Coma scale, eyes open, spontaneous, at hospital admission; R40.2253 Coma scale, best verbal response, oriented, at hospital admission; F10.10 Alcohol abuse, uncomplicated; Y90.0 Blood alcohol level of less than 20 mg/100 ml; Z66 Do not resuscitate; R27.8 Other lack of coordination; H53.2 Diplopia; Z90.89 Acquired absence of other organs; Z80.9 Family history of malignant neoplasm, unspecified; Z59.0 Homelessness; Z86.73 Personal history of transient ischemic attack (TIA), and cerebral infarction without residual deficits; Z98.890 Other specified postprocedural states
CPT/HCPCS: 36415; 70450; 70496; 70498; 70551; 71046; 80053; 80061; 80320; 81003; 82607; 83036; 83605; 84443; 84484; 85025; 85610; 85730; 93005; 93306; 99285

== ENCOUNTER → 2022-03-22 | Outpatient (CLI) | payer OTHER ==
[2022-03-22 19:22] LABS: ALT 20 U/L (10-49); AST 27 U/L (14-35); Creatine Kinase 126 U/L (35-257)
== END | disposition home or self-care (01) ==
LOC: LABWHC1 10:28
PROVIDERS: ATTEND Psychiatry & Neurology Neurology
DX: Z86.73 Personal history of transient ischemic attack (TIA), and cerebral infarction without residual deficits (principal)
CPT/HCPCS: 36415; 82550; 84450; 84460

== ENCOUNTER → 2023-05-01 | Outpatient (CLI) | payer OTHER ==
--- NOTE | 2023-05-01 15:55 | CTL ---
EXAMINATION TYPE: CT Low Dose Lung DATE OF EXAM ORDERED: 05/01/2023 HISTORY: personal tobacco use. Lung cancer screening CT DLP: 57.[address] CTDI: 1..5 mGy Automated exposure control for dose reduction was used. SCREENING VISIT: Initial COMPARISON: None TECHNIQUE: Low dose computed tomography scan was performed through the chest at 1 mm thick sections a nd reconstructed images in the coronal plane at [address] DIAGNOSTIC QUALITY: Satisfactory FINDINGS: LUNG NODULES: Present, detailed below: 1. There is a peripheral calcified 0.4 cm nodule posterior right midlung. Series 4 image 146 There is a 0.5 cm posterior lateral apical nodule image 36 series 4. 3. There is a 0.5 cm nodule anterior right midlung. Series 4 image 129. #4 there is a 0.4 cm nodule p osterior lateral left lung base. Series 4 image 243. LUNGS: COPD: Severity: None Fibrosis: Severity: None Lymph nodes: None Other findings: None RIGHT PLEURAL SPACE: Effusion: None Calcification: None Thickening: None Pneumothorax: None LEFT PLEURAL SPACE: Effusion: None Calcification: None Thickening: Pneumothorax: None HEART: Heart Size: Normal Coronary calcification: Mild Pericardial effusion: None OTHER FINDINGS: Upper abdomen: Normal Bony thorax: Normal Supraclavicular region: Normal Other: Ascending thoracic aorta at the level the main pulmonary artery measures 3.7 cm. The main pul monary artery at the bifurcation measures 2.1 cm. IMPRESSION: 1. Scattered small nodules. Short-term follow-up recommended FOLLOW UP CT CHEST RECOMMENDATION: Follow-up low-dose CT chest [address] LUNG RAD: Lung-Rad 3 Probably Benign
== END | disposition home or self-care (01) ==
LOC: RADCTMAIN 13:04
PROVIDERS: ATTEND Family Medicine
DX: Z12.2 Encounter for screening for malignant neoplasm of respiratory organs (principal); F17.210 Nicotine dependence, cigarettes, uncomplicated; R91.8 Other nonspecific abnormal finding of lung field
CPT/HCPCS: 71271

== ENCOUNTER → 2023-12-27 | Outpatient (CLI) | payer OTHER ==
[2023-12-27 15:23] LABS: Blood Urea Nitrogen 8.5 mg/dL (9.0-27.0); Chloride 100 mmol/L (96-109); Potassium 4.6 mmol/L (3.5-5.5); Sodium 138 mmol/L (135-145)
[2023-12-27 15:50] LABS: HCT 42.7 % (39.6-50.0); HGB 14.4 g/dL (13.0-17.0); MCH 31.9 pg (27.0-32.0); MCHC 33.7 g/dL (32.0-37.0); MCV 94.5 FL (80.0-97.0); Mean Platelet Volume 9.9 FL (9.5-12.2); NRBC Per 100 WBC 0 X 10*3/uL (0.00-0.01); Platelet Count 176 X 10*3/uL (140-440); RBC 4.52 X 10*6/uL (4.40-5.60); RDW 13.3 % (11.5-14.5); WBC 4.41 X 10*3/uL (4.50-10.00)
== END | disposition home or self-care (01) ==
LOC: LABPAT 12:36
PROVIDERS: ATTEND Internal Medicine Interventional Cardiology
DX: Z01.818 Encounter for other preprocedural examination
CPT/HCPCS: 80051; 82565; 84520; 85027

== ENCOUNTER 2024-01-01 09:59 | Day surgery (SDC) | payer OTHER ==
[2023-12-27 11:07] VITALS: BMI 16.9
[2024-01-01 11:08] VITALS: RESP 16; TEMP 98.6
[2024-01-01] MEDS: EMPTY BAG 1 BAG with SODIUM CHLORIDE 0.9% 1,000 ML IV SCH (11:15)
[2024-01-01] MEDS: MIDAZOLAM 2 MG/2 ML VIAL IVP ONE (12:14)
[2024-01-01] MEDS: LIDOCAINE 1% INJ 10MG/ML (20 ML MDV) SQ ONE (12:16)
[2024-01-01] MEDS: HEPARIN SODIUM 1,000 UN/ML (10ML VL) IVP ONE (12:20)
[2024-01-01] MEDS: VERAPAMIL SYRINGE (5 MG/10 ML) INTRAARTER ONE (12:21)
[2024-01-01] MEDS: fentaNYL (PF) 50 MCG/ML 2 ML AMP IVP ONE (12:21)
[2024-01-01] MEDS ORDERED: NALOXONE 0.4 MG/ML 1 ML VIAL IVP PRN (12:34)
[2024-01-01] MEDS: IV FLUID CONTINUATION 500 ML IV ONE (12:38)
--- NOTE | 2024-01-01 12:39 | P.PCN ---
Date of Procedure: 01/01/24 Operative Findings: AN ABDOMINAL AORTOGRAM AND BILATERAL LOWER EXTREMITIES RUNOFF PERFORMING PHYSICIAN: Farhan Benjamin MD PROCEDURE PERFORMED: 1. An abdominal aortogram 2. Bilateral lower extremities runoff 3. Ultrasound-guided access of the right radial artery INDICATION: Symptomatic 63-year-old gentleman with abnormal arterial duplex study COMPLICATION: None LEVEL OF SEDATION: Moderate was sedation length of 18 minutes APPROACH: Right common femoral artery PROCEDURE DESCRIPTION: After obtaining informed consent and explaining the procedure benefits, risks, and complications, the patient was brought to the cardiac logging rafter laborer. The right radial artery was cannulated using micropuncture technique under ultrasound guidance and micropuncture wire passed easily then I placed a 5 Azeri 11 cm sheath at the right radial artery and the patient 2 mg of verapamil intra- arterial and 3000's of heparin intravenous. Subsequently an 035 wire was advanced under fluoroscopic guidance and subsequently pigtail catheter was advanced to the descending aorta where it was placed initially at the level of t he renal arteries and it was pushed above the bifurcation of the aorta The procedure was completed and there was no complications. SELECTIVE PERIPHERAL ANGIOGRAM: The abdominal aorta: Calcified with mild disease only The common iliac arteries: The right and left common iliac arteries appear to have mild disease on the The external iliac arteries: The right and left external appeared to have mild disease only The internal iliac arteries: Both internal's are patent The common femoral arteries: The right and left common femoral arteries appear to have mild disease only Superficial femoral arteries: The right SFA is occluded by the ostium and reconstitutes by the Driss's canal. The left SFA appeared to have mild disease on Popliteal arteries: Right and left popliteal appears to have mild disease only Below the knees: Three-vessel runoff below the knee bilateral CONCLUSION: Occluded right SFA on long segment extends from the ostium all the way to the Driss's canal POSTPROCEDURE MANAGEMENT: Schedule the patient to undergo a BEADER of the right SFA
[2024-01-01] MEDS: SODIUM CHLORIDE 0.9% 1,000 ML in EMPTY BAG 1 BAG IV SCH (12:47)
--- NOTE | 2024-01-01 12:51 | IR ---
EXAMINATION TYPE: IR angio abdominal w runoff Intraoperative/procedural fluoroscopic services were pr ovided. CLINICAL INDICATION:Male, 63 years old with history of right leg pain, 4.0min fluoro, 8.78Bpxx0; , PH H Total fluoroscopy time is 4.0 min. DAP: 1.78 Gycm2 uGym2 Please see the operative/procedural note for further details. [facility], , 01/01/2024 12:49 PM
[2024-01-01 16:59] VITALS: BP 157/83; PULSE 58
== END 2024-01-01 17:45 | disposition home or self-care (01) ==
LOC: CATHCVL 09:59
PROVIDERS: ATTEND Internal Medicine Interventional Cardiology
DX: I73.9 Peripheral vascular disease, unspecified
CPT/HCPCS: 36200; 75625; 75716

== ENCOUNTER 2024-02-07 07:31 | Day surgery (SDC) | payer OTHER ==
[2024-02-07] MEDS: IV FLUID CONTINUATION 1,000 ML IV ONE (07:40)
[2024-02-07 08:00] LABS: Basophils % (A) 1 %; Eosinophils # (A) 0.2 k/uL (0-0.7); Eosinophils % (A) 3 %; HCT 42.7 % (39.0-53.0); HGB 14.5 gm/dL (13.0-17.5); Lymphocytes # (A) 1.5 k/uL (1.0-4.8); Lymphocytes % (A) 33 %; MCH 32.4 pg (25.0-35.0); MCHC 33.9 g/dL (31.0-37.0); MCV 95.7 fL (80.0-100.0); Mean Platelet Volume 6.8; Monocytes # (A) 0.3 k/uL (0-1.0); Monocytes % (A) 6 %; Neutrophils # (A) 2.6 k/uL (1.3-7.7); Neutrophils % (A) 56 %; Platelet Count 187 k/uL (150-450); RBC 4.46 m/uL (4.30-5.90); RDW 12.6 % (11.5-15.5); WBC 4.7 k/uL (3.8-10.6)
[2024-02-07 08:35] LABS: African American GFR (CKD) >90 (>60 ml/min/1.73 sqM); Anion Gap 8 mmol/L; Blood Urea Nitrogen 12 mg/dL (9-20); Calcium 8.7 mg/dL (8.4-10.2); Carbon Dioxide 25 mmol/L (22-30); Chloride 100 mmol/L (98-107); Glucose 80 mg/dL (74-99); Non-African American GFR(CKD) >90 (>60 ml/min/1.73 sqM); Sodium 133 mmol/L (137-145)
[2024-02-07] MEDS: MIDAZOLAM 2 MG/2 ML VIAL IVP ONE (12:07)
[2024-02-07] MEDS: fentaNYL (PF) 50 MCG/ML 2 ML AMP IVP ONE (12:07)
[2024-02-07] MEDS: LIDOCAINE 1% INJ 10MG/ML (20 ML MDV) SQ ONE (12:07)
[2024-02-07] MEDS: HEPARIN SODIUM 1,000 UN/ML (10ML VL) IV ONE (12:14)
[2024-02-07] MEDS: NITROGLYCERIN 1000MCG/10ML SYRINGE INTRACORON ONE (14:03)
[2024-02-07] MEDS: niCARdipine Syringe (1,000 mcg/10 mL) INTRACORON ONE (14:04)
[2024-02-07] MEDS: IOPAMIDOL-370 100ML BTL INJ ONE (14:07)
[2024-02-07] MEDS: HEPARIN SODIUM,PORCINE 10,000 UNIT in SODIUM CHLORIDE 0.9% 1,000 ML IRRIGATION ONE (14:09)
[2024-02-07] MEDS: SODIUM CHLORIDE 0.9% 1,000 ML IV ONE (14:09)
[2024-02-07] MEDS: HEPARIN SODIUM,PORCINE (1 ML) 2,500 UNIT in SODIUM CHLORIDE 0.9% 250 ML IRRIGATION ONE (14:09)
[2024-02-07] MEDS ORDERED: NALOXONE 0.4 MG/ML 1 ML VIAL IVP PRN (14:12)
--- NOTE | 2024-02-07 14:45 | P.PCN ---
Date of Procedure: 02/07/24 Operative Findings: PERCUTANEOUS PERIPHERAL INTERVENTION Performing physician Farhan Benjamin M.D. Procedure performed 1. Successful balloon angioplasty and stenting of the right SFA and right popliteal 2. Adjunctive use of atherectomy as well as IVUS and also lithotripsy balloon 3. Right lower extremity angiogram and left common femoral artery angiogram 4. Ultrasound-guided access of the left common femoral artery Indication Symptomatic 63-year-old gentleman with occluded right SFA Approach Left common femoral artery Complications None Level of sedation Moderate with a sedation time of 120 minutes Procedure description After obtaining informed consent the patient was brought to the cardiac Substitute Crossing Guard. The left common femoral artery was cannulated using micropuncture technique under ultrasound guidance a micropuncture wire passed easily then I placed a 6 Korean 70 cm sheath at the left common femoral artery under fluoroscopy guidance after the left common femoral artery was dilated using 6 Korean dilator. The sheath was advanced all the way to the proximal left common iliac artery under fluoroscopy guidance. Subsequently I did advance a 5 Korean rim catheter over 035 wire to the distal aorta and I advanced the wire to the right common femoral artery and right profunda and the catheter which was the rim catheter was advanced over the wire to the proximal right common femoral artery and then the sheath was advanced over the wire and the catheter to the right common femoral artery under fluoroscopy guidance. At that point anticoagulation was initiated using heparin with continuous ACT monitoring. Subsequently I did right lower extremity angiogram and that showed occluded right SFA by the ostium and reconstitution by the popliteal in the midportion. There was poor runoff below the knee and the arteries below the knee were not well-visualized. Subsequently I was able to cross the chronic total occlusion of the right SFA and using an 035 wire with the backup support of 45 catheter. Subsequently the catheter was advanced all the way over the wire to the right popliteal and injected contrast through the catheter to prove that I was in the true lumen and I was in the true lumen. Subsequently I did exchange my 035 wire into a 014 wire using a catheter and I did intravascular ultrasound IVUS which showed that I was in the true lumen in the right popliteal and in and out the true lumen in the right SFA. I did atherectomy of the right popliteal using the Rota Alphonso device. Subsequently balloon angioplasty was performed using lithotripsy below for only the proximal right SFA by the takeoff of the profunda because the proximal SFA was extremely calcified under ultrasound guidance IVUS. At that point that was performed using 7 mm lithotripsy balloon. The right SFA after that was ballooned using 6 mm and right popliteal was ballooned using 6 mm as well. An angiogram was performed and showed good angiographic results for the right popliteal and mid right SFA but dissection appeared to be flow- limiting involving the proximal right SFA and distal right SFA. I decided to cover that with a stent. I placed Zilver PTX drug-coated stent 7.0 x 140 the proximal and 7.0 x 140 in the distal then after that I postdilated the stent using 6 mm balloon and after that I did the drug-coated balloon for the right popliteal. Final angiogram was performed and showed an excellent angiographic results and the procedure was completed with no complication. Then I did exchange my long sheath into short sheath using 035 stiff Glidewire and I did selective left common femoral artery angiogram. The procedure was completed with no complication. Postprocedure management 1. Dual antiplatelet therapy 2. Aggressive cholesterol control 3. Risk factors modification 4. Follow-up with the patient
[2024-02-07] MEDS: SODIUM CHLORIDE 0.9% 1,000 ML in EMPTY BAG 1 BAG IV SCH (15:55)
[2024-02-07] MEDS: hydrALAZINE HCL 20 MG/ML 1 ML VIAL IVP STA (15:55)
[2024-02-07 17:43] VITALS: RESP 16
[2024-02-07] MEDS: HYDROmorphone 0.5 MG/0.5 ML SYRINGE IVP STA (17:46)
[2024-02-08 07:56] LABS: African American GFR (CKD) >90 (>60 ml/min/1.73 sqM); Non-African American GFR(CKD) >90 (>60 ml/min/1.73 sqM)
--- NOTE | 2024-02-08 08:17 | IR ---
EXAMINATION TYPE: IR angio lower extremity RT DATE OF EXAM: 02/07/2024 6:16 PM COMPARISON: Pre Operative Images if available both CT/MRI or plain film CLINICAL INDICATION: Male, 63 years old with history of RT LOWER ANGIOGRAM, 47 MINS FLT, 0.084GY; TECHNIQUE: IR angio lower extremity RT, multiple fluoroscopic images provided for procedure. Total fluoroscopy time: 47 min Total submitted images to PACS: [id number] DAP: 0.084 mGym2 Gycm2 uGym2 cGycm2 or equivalent. FINDINGS: IMPRESSION: 1. Report was generated for administrative purposes only. 2. Please see the operative/procedural note for further details. [facility], , 02/08/2024 8:15 AM
[2024-02-08 09:16] VITALS: BP 112/64; PULSE 64; TEMP 97.4
[2024-02-08] MEDS: lisinopriL 20 MG TAB PO SCH (09:54)
[2024-02-08] MEDS: ATORVASTATIN 40 MG TAB PO SCH (09:54)
[2024-02-08] MEDS: CLOPIDOGREL 75 MG TAB PO SCH (09:54)
[2024-02-08] MEDS: ASPIRIN 81 MG PO SCH (09:54)
[2024-02-08] MEDS: cilostazoL 100 MG TAB PO SCH (09:57)
[2024-02-08] MEDS ORDERED: RX INFO: IV CONTRAST WAS GIVEN 1 EACH MISC MISCELLANE PRN (10:40)
[2024-02-08] MEDS ORDERED: SODIUM CHLORIDE 0.9% 1,000 ML IV SCH (10:45)
--- NOTE | 2024-02-08 11:10 | P.DS ---
Providers Attending physician: Farhan Benjamin Primary care physician: [facility] Course: This is a 63-year-old male who underwent balloon angioplasty and stenting of the right SFA and right popliteal yesterday with Dr. Benjamin. Patient is doing well post procedure with no immediate complications noted. The patient will be continued on aspirin and Plavix for 12 months. Patient is to continue with statin therapy with atorvastatin 40 mg daily. The patient was deemed stable for discharge home today from a cardiac standpoint. Please see EMR for further hospital course details. Patient to follow-up postdischarge with Dr. Arenas Discharge diagnosis Peripheral arterial disease, status post balloon angioplasty and stenting of the right SFA and right popliteal Nurse practitioner note has been reviewed by physician. Signing provider agrees with the documented findings, assessment, and plan of care documented by SHOPPER MARKETING MANAGER as a scribe. Plan - Discharge Summary Discharge Rx Participant: No New Discharge Prescriptions: New Aspirin 81 mg PO DAILY #90 tab Continue Clopidogrel [Plavix] 75 mg PO DAILY #30 tab lisinopriL [Zestril] 20 mg PO DAILY Atorvastatin [Lipitor] 40 mg PO DAILY Discontinued cilostazoL [Pletal] 100 mg PO DAILY Aspirin 81 mg PO ONCE Discharge Medication List Clopidogrel [Plavix] 75 mg PO DAILY #30 tab 12/18/19 [Rx] Atorvastatin [Lipitor] 40 mg PO DAILY 12/27/23 [History] lisinopriL [Zestril] 20 mg PO DAILY 12/27/23 [History] Aspirin 81 mg PO DAILY #90 tab 02/08/24 [Rx] Follow up Appointment(s)/Referral(s): Roddy Arenas MD [Medical Doctor] - 02/20/24 1:30 pm Patient Instructions/Handouts: Peripheral Artery Disease (DC), Moderate Sedation (DC), Peripheral Vascular Angioplasty (DC), Angiogram (DC), Peripheral Vascular Stent Placement (DC) Activity/Diet/Wound Care/Special Instructions: NO DRIVING FOR 3 DAYS. OK TO SHOWER TOMORROW BUT NO SOAKING IN TUBS, SWIMMING ECT TO PREVENT INFECTION. AVOID STAIRS, PUSHING, PULLING, LIFTING MORE THAN 10 LBS FOR 3 DAYS. SIGNS OF INFECTION IE: FEVER, RASH, UNUSUAL DRAINAGE, SWELLING OR HARD KNOT CONTACT DR OR GO TO ER TO EVALUATE. ACETAMINOPHEN FOR PAIN NEEDED DIRECTED. MEDICATIONS DIRECTED BY DR BENJAMIN Discharge Disposition: HOME SELF-CARE
== END 2024-02-08 10:34 | disposition home or self-care (01) ==
LOC: CATHCVL 07:31 → 3SCARD 14:05 → CATHCVL 02-08 10:34
PROVIDERS: ATTEND Internal Medicine Interventional Cardiology
DX: I77.1 Stricture of artery (principal); F10.90 Alcohol use, unspecified, uncomplicated; F12.99 Cannabis use, unspecified with unspecified cannabis-induced disorder
CPT/HCPCS: 76937; 37252; 80048; 82565; 85025; 99152; 99153 ×7; C1894 ×2; C1769 ×4; C1753; C1874; C9767; C2628; C1725 ×2; C2623; J2250; J0360; J1644 ×3; J2003; J3010; J1171; Q9967; J2305

== ENCOUNTER → 2024-08-19 | Outpatient (CLI) | payer OTHER ==
[2024-08-19 18:47] LABS: Basophils # (A) 0.04 X 10*3/uL (0.00-0.10); Basophils % (A) 0.8 %; Eosinophils % (A) 2.1 %; HCT 45.3 % (39.6-50.0); HGB 14.9 g/dL (13.0-17.0); Lymphocytes # (A) 0.99 X 10*3/uL (0.90-5.00); Lymphocytes % (A) 20.5 %; MCH 31.3 pg (27.0-32.0); MCHC 32.9 g/dL (32.0-37.0); MCV 95.2 FL (80.0-97.0); Mean Platelet Volume 9.4 FL (9.5-12.2); Monocytes # (A) 0.32 X 10*3/uL (0.20-1.00); Monocytes % (A) 6.6 %; NRBC Per 100 WBC 0 X 10*3/uL (0.00-0.01); Neutrophils # (A) 3.35 X 10*3/uL (1.80-7.70); Neutrophils % (A) 69.6 %; Platelet Count 186 X 10*3/uL (140-440); RBC 4.76 X 10*6/uL (4.40-5.60); RDW 13.6 % (11.5-14.5); WBC 4.82 X 10*3/uL (4.50-10.00)
[2024-08-19 20:24] LABS: NT-Pro-B-Type Natriuretic Pept <36 pg/mL (0-125)
[2024-08-19 20:41] LABS: BUN/Creat Ratio 12.12 Ratio (12.00-20.00); Blood Urea Nitrogen 9.7 mg/dL (9.0-27.0); Carbon Dioxide 22.8 mmol/L (21.6-31.8); Chloride 98 mmol/L (96-109); Chol/HDL Ratio 2.05 Ratio; Glucose 89 mg/dL (70-110); LDL Cholesterol,Calculated 80.3 mg/dL (0.0-131.0); Potassium 4.3 mmol/L (3.5-5.5); Sodium 135 mmol/L (135-145); VLDL Calculation 18.98 mg/dL (5.00-40.00)
[2024-08-19 20:42] LABS: ALT 17 U/L (10-49); AST 29 U/L (14-35); Albumin 4.6 g/dL (3.8-4.9); Albumin/Globulin Ratio 2.19 Ratio (1.60-3.17); Alkaline Phosphatase 74 U/L (41-126); Calcium 9.3 mg/dL (8.7-10.3); Globulin 2.1 g/dL (1.6-3.3); Prostate Specific Antigen 2.42 ng/mL (0.000-4.500); Total Bilirubin 0.4 mg/dL (0.3-1.2); Total Protein 6.7 g/dL (6.2-8.2)
== END | disposition home or self-care (01) ==
LOC: LABWHC1 12:53
PROVIDERS: ATTEND Family Medicine
DX: Z12.5 Encounter for screening for malignant neoplasm of prostate (principal); E78.2 Mixed hyperlipidemia; I50.9 Heart failure, unspecified; D72.9 Disorder of white blood cells, unspecified; E11.9 Type 2 diabetes mellitus without complications; R79.89 Other specified abnormal findings of blood chemistry; Z72.0 Tobacco use
CPT/HCPCS: 36415; 80053; 80061; 82306; 83036; 83880; 84153; 84443; 85025